=== PATIENT | male | born 1995 | race Caucasian/White ===

== ENCOUNTER 2017-10-11 05:49 | Emergency (ER) | payer MEDICAID, OTHER ==
[~2017-10-11] VITALS: Ht 170.2 cm; Wt 54.5 kg
[2017-10-11] MEDS ORDERED: acetaminophen 325mg tablet PO ONE (06:40)
[2017-10-11] MEDS ORDERED: ketorolac trometh. 30mg/ml inj. IV ONE (06:40)
[2017-10-11 08:44] VITALS: BP 122/44
== END 2017-10-11 08:46 | disposition home or self-care (01) ==
LOC: ER 05:49
DX: S80.01XA Contusion of right knee, initial encounter (principal); M25.512 Pain in left shoulder; R07.81 Pleurodynia; Z88.2 Allergy status to sulfonamides; Z88.8 Allergy status to other drugs, medicaments and biological substances; V59.49XA Driver of pick-up truck or van injured in collision with other motor vehicles in traffic accident, initial encounter; Y93.89 Activity, other specified; Y92.89 Other specified places as the place of occurrence of the external cause; Y99.8 Other external cause status
CPT/HCPCS: 71046; 73030; 93005; 96374; 99284; J1885